=== PATIENT | female | born 2000 | race Caucasian/White ===

== ENCOUNTER 2018-05-17 01:54 | Emergency (ER) | payer OTHER ==
[~2018-05-17] VITALS: Ht 165.1 cm; Wt 95.0 kg
[2018-05-17 01:57] VITALS: BP 128/91
== END 2018-05-17 02:52 | disposition left against medical advice (07) ==
LOC: ED 02:46
DX: S00.93XA Contusion of unspecified part of head, initial encounter (principal); W22.8XXA Striking against or struck by other objects, initial encounter; Y93.89 Activity, other specified; Y99.8 Other external cause status; Y92.009 Unspecified place in unspecified non-institutional (private) residence as the place of occurrence of the external cause
CPT/HCPCS: 70450; 99284